=== PATIENT | male | born 1980 | race African-American/Black ===

== ENCOUNTER 2017-06-26 15:04 | Emergency (ER) | payer SELFPAY ==
[~2017-06-26] VITALS: Ht 175.3 cm; Wt 67.0 kg
[~2017-06-26 15:04] MED LIST: CEPH500C3 PO; OXYC30TA PO
[2017-06-26 15:17] VITALS: BP 140/92; PULSE 82; RESP 20; TEMP 97.9; O2SAT 100
[2017-06-26] MEDS ORDERED: SODIUM CHLOR 0.9% 1000 ML INJ 1,000 ML IV ONE ×3 (15:30→16:30)
[2017-06-26 15:37] LABS: AUTOMATED NEUTROPHIL # 5.5 TH/MM3 (1.8-7.7); BASOPHIL # 0.1 TH/MM3 (0-0.2); EOSINOPHIL % 0.5 % (0.0-4.0); HEMATOCRIT 45.2 % (39.0-51.0); HEMO FLAGS DIFF FINAL; LYMPHOCYTE # 1.3 TH/MM3 (1.0-4.8); MEAN CELL VOLUME 90.6 FL (80.0-100.0); MEAN CORPUSCULAR HEMOGLOBIN 31.3 PG (27.0-34.0); MEAN CORPUSCULAR HGB CONC 34.6 % (32.0-36.0); MONO % 8.1 % (0.0-8.0); NEUT % 73.4 % (16.0-70.0); PLATELET COUNT 333 TH/MM3 (150-450); RED BLOOD COUNT 4.99 MIL/MM3 (4.50-5.90); WHITE BLOOD COUNT 7.5 TH/MM3 (4.0-11.0)
[2017-06-26] MEDS ORDERED: PERI0.126 SWISH-SPIT (15:51)
--- NOTE | 2017-06-26 15:51 | PD ---
HPI Chief Complaint: Medical Clearance Time Seen by Provider: 15:18 Travel History International Travel<30 days: No Contact w/Intl Traveler<30days: No Traveled to known affect area: No History of Present Illness HPI The patient is a 36-year-old [place] male who presents to the emergency department via EMS for possible heat exhaustion. 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 The patient was out in the heat earlier today when he developed diffuse body cramping of the arms, hands, and legs. He also notes mild cramping of the back. He denies any nausea or vomiting, does no significant diaphoresis in the heat. He does admit to drinking 2 twisted tea alcoholic drinks last night, but has been drinking some water today. However, he admits to not drinking enough water throughout the day. Symptoms are moderate, there are currently no alleviating factors, possibly exacerbated by working in the heat. PFSH Past Medical History Medical History: Denies Significant Hx Diminished Hearing: No Past Surgical History Surgical History: No Previous Surgery Social History Alcohol Use: Yes Tobacco Use: Yes Substance Use: Yes (MARIJUANA) Allergies-Medications (Allergen,Severity, Reaction): Coded Allergies: Cashew (Verified Allergy, Intermediate, THROAT SWELLING, ITCHY, 06/16/16) Reported Meds & Prescriptions Reported Meds & Active Scripts Active Peridex Liq (Chlorhexidine Gluconate (Mouth) Liq) 0.12% Soln 15 Ml SWISH-SPIT BID Review of Systems Except as stated in HPI: all other systems reviewed are Neg General / Constitutional: No: Fever, Chills Cardiovascular: No: Chest Pain or Discomfort Respiratory: No: Shortness of Breath Gastrointestinal: No: Nausea, Vomiting, Abdominal Pain Musculoskeletal: Positive: Cramping Physical Exam Narrative GENERAL: Awake, alert, pleasant 36-year-old male who appears his stated age and is in no acute respiratory distress. SKIN: Focused skin assessment warm/dry. Multiple tattoos noted. HEAD: Atraumatic. Normocephalic. EYES: Pupils equal and round. No scleral icterus. No injection or drainage. ENT: No nasal bleeding or discharge. Dry mucous membranes. Dentition reveals a left lower posterior molar with a cavernous area that is tender to palpation. NECK: Trachea midline. No JVD. CARDIOVASCULAR: Regular rate and rhythm. No murmur appreciated. RESPIRATORY: No accessory muscle use. Clear to auscultation. Breath sounds equal bilaterally. GASTROINTESTINAL: Abdomen soft, non-tender, nondistended. No rebound tenderness. MUSCULOSKELETAL: No obvious deformities. No clubbing. No cyanosis. No edema. NEUROLOGICAL: Awake and alert. No obvious cranial nerve deficits. Motor grossly within normal limits. Normal speech. PSYCHIATRIC: Appropriate mood and affect; insight and judgment normal. Data Data Last Documented VS Vital Signs Date Time Temp Pulse Resp B/P Pulse Ox O2 Delivery O2 Flow Rate FiO2 06/26/17 15:17 97.9 82 20 140/92 100 Orders Complete Blood Count With Diff (06/26/17 15:18) Comprehensive Metabolic Panel (06/26/17 15:18) Urinalysis - C+S If Indicated (06/26/17 15:18) Creatine Kinase (Cpk) (06/26/17 15:18) Magnesium (Mg) (06/26/17 15:18) Sodium Chlor 0.9% 1000 Ml Inj (Ns 1000 M (06/26/17 15:30) Sodium Chlor 0.9% 1000 Ml Inj (Ns 1000 M (06/26/17 15:45) CKMB (06/26/17 15:28) CKMB% (06/26/17 15:28) Labs Laboratory Tests Test 06/26/17 06/26/17 15:28 15:40 White Blood Count 7.5 TH/MM3 Red Blood Count 4.99 MIL/MM3 Hemoglobin 15.6 GM/DL Hematocrit 45.2 % Mean Corpuscular Volume 90.6 FL Mean Corpuscular Hemoglobin 31.3 PG Mean Corpuscular Hemoglobin 34.6 % Concent Red Cell Distribution Width 15.0 % Platelet Count 333 TH/MM3 Mean Platelet Volume 9.3 FL Neutrophils (%) (Auto) 73.4 % Lymphocytes (%) (Auto) 17.0 % Monocytes (%) (Auto) 8.1 % Eosinophils (%) (Auto) 0.5 % Basophils (%) (Auto) 1.0 % Neutrophils # (Auto) 5.5 TH/MM3 Lymphocytes # (Auto) 1.3 TH/MM3 Monocytes # (Auto) 0.6 TH/MM3 Eosinophils # (Auto) 0.0 TH/MM3 Basophils # (Auto) 0.1 TH/MM3 CBC Comment DIFF FINAL Differential Comment Sodium Level 136 MEQ/L Potassium Level 3.4 MEQ/L Chloride Level 97 MEQ/L Carbon Dioxide Level 27.7 MEQ/L Anion Gap 11 MEQ/L Blood Urea Nitrogen 20 MG/DL Creatinine 1.82 MG/DL Estimat Glomerular Filtration 51 ML/MIN Rate Random Glucose 102 MG/DL Calcium Level 9.9 MG/DL Magnesium Level 2.5 MG/DL Total Bilirubin 1.1 MG/DL Aspartate Amino Transf 48 U/L (AST/SGOT) Alanine Aminotransferase 23 U/L (ALT/SGPT) Alkaline Phosphatase 79 U/L Total Creatine Kinase 702 U/L Creatine Kinase MB 3.7 NG/ML Creatine Kinase MB % 0.5 % Total Protein 8.6 GM/DL Albumin 4.5 GM/DL Urine Color DARK-YELLOW Urine Turbidity CLEAR Urine pH 5.5 Urine Specific [place] 1.036 Urine Protein 30 mg/dL Urine Glucose (UA) NEG mg/dL Urine Ketones TRACE mg/dL Urine Occult Blood NEG Urine Nitrite NEG Urine Bilirubin NEG Urine Urobilinogen 4.0 MG/DL Urine Leukocyte Esterase NEG Urine WBC 1 /hpf Urine Hyaline Casts 48 /lpf Urine Mucus MOD /lpf Microscopic Urinalysis Comment CULT NOT INDICATED MDM Medical Decision Making Medical Screen Exam Complete: Yes Emergency Medical Condition: Yes Medical Record Reviewed: Yes Interpretation(s) Laboratory Tests Test 06/26/17 06/26/17 15:28 15:40 White Blood Count 7.5 TH/MM3 Red Blood Count 4.99 MIL/MM3 Hemoglobin 15.6 GM/DL Hematocrit 45.2 % Mean Corpuscular Volume 90.6 FL Mean Corpuscular Hemoglobin 31.3 PG Mean Corpuscular Hemoglobin 34.6 % Concent Red Cell Distribution Width 15.0 % Platelet Count 333 TH/MM3 Mean Platelet Volume 9.3 FL Neutrophils (%) (Auto) 73.4 % Lymphocytes (%) (Auto) 17.0 % Monocytes (%) (Auto) 8.1 % Eosinophils (%) (Auto) 0.5 % Basophils (%) (Auto) 1.0 % Neutrophils # (Auto) 5.5 TH/MM3 Lymphocytes # (Auto) 1.3 TH/MM3 Monocytes # (Auto) 0.6 TH/MM3 Eosinophils # (Auto) 0.0 TH/MM3 Basophils # (Auto) 0.1 TH/MM3 CBC Comment DIFF FINAL Differential Comment Sodium Level 136 MEQ/L Potassium Level 3.4 MEQ/L Chloride Level 97 MEQ/L Carbon Dioxide Level 27.7 MEQ/L Anion Gap 11 MEQ/L Blood Urea Nitrogen 20 MG/DL Creatinine 1.82 MG/DL Estimat Glomerular Filtration 51 ML/MIN Rate Random Glucose 102 MG/DL Calcium Level 9.9 MG/DL Magnesium Level 2.5 MG/DL Total Bilirubin 1.1 MG/DL Aspartate Amino Transf 48 U/L (AST/SGOT) Alanine Aminotransferase 23 U/L (ALT/SGPT) Alkaline Phosphatase 79 U/L Total Creatine Kinase 702 U/L Creatine Kinase MB 3.7 NG/ML Creatine Kinase MB % 0.5 % Total Protein 8.6 GM/DL Albumin 4.5 GM/DL Urine Color DARK-YELLOW Urine Turbidity CLEAR Urine pH 5.5 Urine Specific [place] 1.036 Urine Protein 30 mg/dL Urine Glucose (UA) NEG mg/dL Urine Ketones TRACE mg/dL Urine Occult Blood NEG Urine Nitrite NEG Urine Bilirubin NEG Urine Urobilinogen 4.0 MG/DL Urine Leukocyte Esterase NEG Urine WBC 1 /hpf Urine Hyaline Casts 48 /lpf Urine Mucus MOD /lpf Microscopic Urinalysis Comment CULT NOT INDICATED Differential Diagnosis Differential diagnoses includes dehydration, hypokalemia, hyperkalemia, hypocalcemia, hypercalcemia, acute kidney injury, rhabdomyolysis, dental abscess , odontalgia. Narrative Course IV was established, labs were drawn and sent, and the patient was placed on cardiac telemetry monitoring and continuous pulse oximetry monitoring. 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 CPK and electrolytes were sent to lab. UA was ordered to evaluate for ketones. UA has trace ketones. Creatinine is elevated at 1.82, alt creatinine was 1.1. The patient appears to have acute dehydration and heat exhaustion. The patient was administered 3 L of IV fluids. He is advised to drink plenty of fluids to stay hydrated of the next several days. CPK was 702 consistent with mild rhabdomyolysis, should improve with judicious by mouth fluids and 3 L of IV fluids. Potassium is low at 3.4, this was replaced orally. Diagnosis Primary Impression: Dehydration Additional Impression: Odontalgia Patient Instructions: General Instructions Additional Instructions: Medications as directed. Follow-up with your primary physician. Drink plenty fluids to stay hydrated. Follow-up with a dentist. Med/Other Pt SpecificInfo: Prescription(s) given Scripts Chlorhexidine Gluconate (Mouth) Liq (Peridex Liq)0.12% Soln15 Ml SWISH-SPIT BID #[id number] ML Ref 0 Prov:Arnaldo Bolanos MD 06/26/17 Disposition: 01 DISCHARGE HOME Condition: Stable Arnaldo Bolanos MD Jun 26, 2017 15:51
[2017-06-26 15:58] LABS: ANION GAP 11 MEQ/L (5-15); AST (GOT) 48 U/L (15-37); BICARBONATE 27.7 MEQ/L (21.0-32.0); BLOOD UREA NITROGEN 20 MG/DL (7-18); CHLORIDE 97 MEQ/L (98-107); GLOMERULAR FILTRATION RATE 51 ML/MIN (>89); MAGNESIUM 2.5 MG/DL (1.5-2.5); POTASSIUM 3.4 MEQ/L (3.5-5.1); SODIUM (NA) 136 MEQ/L (136-145)
[2017-06-26 16:02] LABS: ALKALINE PHOSPHATASE 79 U/L (45-117); ALT (GPT) 23 U/L (12-78); CREATINE KINASE 702 U/L (39-308); TOTAL BILIRUBIN ADULT 1.1 MG/DL (0.2-1.0)
[2017-06-26 16:12] LABS: BLOOD, URINE NEG (NEG); COMMENT (UR) CULT NOT INDICATED; CULTURE IF INDICATED CULT NOT INDICATED; GLUCOSE,URINE NEG (NEG); HYALINE CAST, URINE 48 /lpf (RARE); KETONE, URINE TRACE mg/dL (NEG); MUCUS URINE MOD /lpf (OCC); NITRITE,URINE NEG (NEG); PH, URINE 5.5 (5.0-8.5); URINE COLOR DARK-YELLOW (YELLW/STRAW)
[2017-06-26 16:17] LABS: CKMB 3.7 NG/ML (0.5-3.6)
[2017-06-26] MEDS ORDERED: POTASSIUM CHLORIDE 25 MEQ EFFERVESCENT TAB PO ONE (16:30)
== END 2017-06-26 18:21 | disposition home or self-care (01) ==
LOC: NEPD 15:04
DX: E86.0 Dehydration (principal); K08.89 Other specified disorders of teeth and supporting structures; Z72.0 Tobacco use
CPT/HCPCS: 80053; 81001; 82550; 82552; 83735; 85025; 96360; 96361; 99284; J7030